=== PATIENT | male | born 1950 | race Caucasian/White ===

== ENCOUNTER 2022-10-08 06:20 | Day surgery (SDC) | payer MEDICARE ==
[2022-10-08] MEDS ORDERED: Lactated Ringers 1,000 ML IV SCH (07:00)
[2022-10-08] MEDS ORDERED: Propofol 200 MG/20 ML SDV ONE (07:14)
[2022-10-08] MEDS ORDERED: fentaNYL 50 MCG/ML SDV ONE (07:14)
[2022-10-08] MEDS ORDERED: Midazolam 1 MG/ML 2 ML SDV ONE (07:14)
== END 2022-10-08 09:00 | disposition home or self-care (01) ==
LOC: JP.SDS 06:20
PROVIDERS: ATTEND Family Medicine
DX: Z12.11 Encounter for screening for malignant neoplasm of colon (principal); D12.0 Benign neoplasm of cecum; D12.2 Benign neoplasm of ascending colon; K62.1 Rectal polyp; K57.30 Diverticulosis of large intestine without perforation or abscess without bleeding; J44.9 Chronic obstructive pulmonary disease, unspecified; G47.33 Obstructive sleep apnea (adult) (pediatric); E66.01 Morbid (severe) obesity due to excess calories; I10 Essential (primary) hypertension; E78.5 Hyperlipidemia, unspecified; Z98.890 Other specified postprocedural states; Z79.899 Other long term (current) drug therapy
CPT/HCPCS: 88305; J2250; J2704; J3010; J7120

== ENCOUNTER 2023-06-23 09:37 | Day surgery (SDC) | payer MEDICARE ==
[2023-06-23] MEDS ORDERED: Propofol 200 MG/20 ML SDV ONE (10:05)
[2023-06-23] MEDS ORDERED: fentaNYL 100 MCG/2 ML SDV ONE (10:05)
[2023-06-23] MEDS: Lactated Ringers 1,000 ML IV SCH (10:35)
== END 2023-06-23 14:29 | disposition home or self-care (01) ==
LOC: JP.SDS 09:37
PROVIDERS: ATTEND Student in an Organized Health Care Education/Training Program
DX: K29.50 Unspecified chronic gastritis without bleeding (principal); K31.A0 Gastric intestinal metaplasia, unspecified; K29.80 Duodenitis without bleeding; K44.9 Diaphragmatic hernia without obstruction or gangrene; K21.9 Gastro-esophageal reflux disease without esophagitis; G47.33 Obstructive sleep apnea (adult) (pediatric); J44.9 Chronic obstructive pulmonary disease, unspecified; Z79.899 Other long term (current) drug therapy
CPT/HCPCS: 43239; 88305; 88342; J2704; J3010; J7120

== ENCOUNTER 2024-07-19 07:56 | Day surgery (SDC) | payer MEDICARE ==
[2024-07-19] MEDS ORDERED: Propofol 200 MG/20 ML SDV ONE (08:02)
[2024-07-19] MEDS ORDERED: fentaNYL 50 MCG/ML SDV ONE (08:02)
[2024-07-19] MEDS: Lactated Ringers 1,000 ML IV SCH (08:48)
== END 2024-07-19 12:06 | disposition home or self-care (01) ==
LOC: JP.SDS 07:56
PROVIDERS: ATTEND Surgery
DX: K29.50 Unspecified chronic gastritis without bleeding (principal); K22.70 Barrett's esophagus without dysplasia; K22.89 Other specified disease of esophagus; I10 Essential (primary) hypertension; E78.5 Hyperlipidemia, unspecified; J44.9 Chronic obstructive pulmonary disease, unspecified; K21.9 Gastro-esophageal reflux disease without esophagitis; E66.01 Morbid (severe) obesity due to excess calories
CPT/HCPCS: 00731-QZ; 88305; 88342; J2704; J3010; J7120